=== PATIENT | male | born 1970 | race Two or more races ===

== ENCOUNTER 2024-08-25 20:12 | Emergency (ER) | payer MEDICAID, OTHER ==
[~2024-08-25] VITALS: Ht 180.3 cm; Wt 120.5 kg
[2024-08-25] MEDS: FLUORESCEIN SOD OPTH TEST STRIP LEFTEYE ONE (20:41)
[2024-08-25] MEDS ORDERED: AZIT4SOL LEFTEYE (20:42)
[2024-08-25] MEDS ORDERED: ACET500T58 PO (20:42)
[2024-08-25] MEDS ORDERED: IBUP-1455 PO (20:42)
--- NOTE | 2024-08-25 20:43 | ED.PDOC ---
Eye-HPI HPI Comments This patient is a pleasant but morbidly obese 54-year-old male who arrives the ED today for evaluation left eye pain concerns for the past 2 hours. 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 Patient denies any vision change. Patient states he went to urgent care initially and they did a copious irrigation, but the patient states he eye continues to be painful. Vital signs were stable on arrival. Chief Complaint: Foreign Body Time Seen by MD: 20:22 Reviewed Notes: Nurses Notes Allergies: Coded Allergies: NO KNOWN ALLERGIES (Unverified , 08/25/24) Information Source: Patient Mode of Arrival: Ambulatory Timing: Hours Duration: Since onset Prehospital treatment: Other (Urgent care evaluation) Quality: Pain, Red, FB sensation Eye Location: Left Conjunctiva: Injection Cornea: Left eye, Abrasion Onset: FB Exposure Past Medical History PAST MEDICAL HISTORY: Denies Surgical History: Denies all surgeries Family History Family History: Reviewed,noncontributory to illness, No family hx of Cancer, No family hx of DM, No family hx of Heart lauryn, No family hx of HTN, No family hx ofKidney lauryn, No family hx of Liver lauryn, No family hx of Lung lauryn, No family hx of Stroke Social History Smoker: Non-Smoker Alcohol: Denies ETOH Use Drugs: Denies Drug Use Lives In: Home Constitutional: denies: chills, diaphoresis, fatigue, fever, malaise, sweats, weakness, others EENTM: reports: eye pain, eye redness; denies: blurred vision, double vision, ear bleeding, ear discharge, ear drainage, ear pain, ear ringing, hearing loss, mouth pain, mouth swelling, nasal discharge, nose bleeding, nose congestion, n ose pain, photophobia, tearing, throat pain, throat swelling, voice changes, others Respiratory: denies: cough, hemoptysis, orthopnea, SOB at rest, shortness of breath, SOB with excertion, stridor, wheezing, others Cardiovascular: denies: chest pain, dizzy spells, diaphoresis, Dyspnea on exertion, edema, irregular heart beat, left arm pain, lightheadedness, palpitations, PND, syncope, others Gastrointestinal: denies: abdomen distended, abdominal pain, blood streaked bowels, constipated, diarrhea, dysphagia, difficulty swallowing, hematemesis, melena, nausea, poor appetite, poor fluid intake, rectal bleeding, rectal pain, vomiting, others Genitourinary: denies: burning, dysuria, flank pain, frequency, hematuria, incontinence, penile discharge, penile sore, pain, testicle pain, testicle swelling, urgency, others Neurological: denies: dizziness, fainting, headache, left sided numbness, left sided weakness, numbness, paresthesia, pre-existing deficit, right sided numbness, right sided weakness, seizure, speech problems, tingling, tremors, weakness, others Musculoskeletal: denies: back pain, gout, joint pain, joint swelling, muscle pain, muscle stiffness, neck pain, others Integumetry: denies: bruises, change in color, change in hair/nails, dryness, laceration, lesions, lumps, rash, wounds, others Allergic/Immunocompromised: denies: Difficulty Healing, Frequent Infections, Hives, Itching, others Hematologic/Lymphatic: denies: anemia, blood clots, easy bleeding, easy bruising, swollen glands, others Endocrine: denies: excessive hunger, excessive sweating, excessive thirst, excessive urination, flushing, intolerance to cold, intolerance to heat, unexplained weight gain, unexplained weight loss, others Psychiatric: denies: anxiety, bipolar disorder, depression, hopeless, panic disorder, schizophrenia, sleepless, suicidal, others Physical Exam General Appearance: Moderate Distress (Fywm-[id number] distress due to left eye pain concerns), Normal HEENT: Pharynx Normal, TMs Normal, Other (Left eye reveals diffuse scleral injection. Fluorescein stain confirmed multiple superior corneal abrasions. No hyphema noted. No vision loss.) Neck: Full Range of Motion, Non-Tender, Normal, Normal Inspection Respiratory: Chest Non-Tender, Lungs Clear, No Accessory Muscle Use, No Respiratory Distress, Normal Breath Sounds Cardiovascular: No Edema, No JVD, No Murmur, No Gallop, Normal Peripheral Pulses, Regular Rate/Rhythm Breast Exam: Deferred Gastrointestinal: No Organomegaly, Non Tender, No Pulsatile Mass, Normal Bowel Sounds, Soft Genitalia: Deferred Pelvic: Deferred Rectal: Deferred Extremities: No calf tenderness, Normal capillary refill, Normal inspection, Normal range of motion, Non-tender, No pedal edema Neurologic: Alert, splitter tender II-XII nml as Tested, No Motor Deficits, Normal Affect, Normal Mood, No Sensory Deficits Cerebellar Function: Normal Reflexes: Normal Skin: Dry, Normal Color, Warm Lymphatic: No Adenopathy Was a procedure done? Was a procedure done?: No EENT DIFF Eye: Corneal Abrasion, Foreign Body-Corneal X-Ray, Labs, Meds, VS Vital Signs Date Time Temp Pulse Resp B/P (MAP) Pulse Ox O2 Delivery O2 Flow Rate FiO2 08/25/24 20:12 98.0 78 18 156/85 (108) 97 X-Ray, Labs, Meds, VS Comment Patient had some pain relief status post tetracaine dispensing. Advised patient utilize antibiotics as directed for the next few days. Pain medication as needed. Advised patient to follow up with Ophthalmology in the next few days for definitive for re-evaluation. Time of 1ST Reevaluation: 20:40 Reevaluation 1ST: Improved Consultation: PCP Patient Education/Counseling: Diagnosis, Treatment Family Education/Counseling: Diagnosis, Treatment Departure 1 Departure Time of Disposition: 20:41 Impression: Primary Impression: Corneal abrasion, left Disposition: HOME / SELF CARE / HOMELESS Condition: Stable Additional Instructions: Advise utilizing antibiotic eyedrops for the next few days to stave off any infective development. Pain medication as needed. Patient should follow up with Ophthalmology in the next 3-4 days for definitive re-evaluation. e-Prescriptions Ibuprofen Micronized (Ibuprofen) 800 Mg Tab 800 MG PO Q8HP PRN, #20 TAB Prov: ORSALINA STEVENS PAC 08/25/24 Acetaminophen (Acetaminophen) 500 Mg Tab 500 MG PO Q4HP PRN, #20 TAB Prov: ROSALINA STEVENS PAC 08/25/24 Azithromycin (Ophth) (Azasite) 1 % Alondra 2 DROP LEFTEYE BID for 3 Days, #2.5 ML 0 Refills Prov: ROSALINA STEVENS PAC 08/25/24 Discharged With: Self, Friend Critical Care Note Critical Care Time?: No Stability Stability form required: No Heart Score Heart Score: Heart Score Response (Comments) Value History N/A 0 EKG N/A 0 Age N/A 0 Risk Factors N/A 0 Troponin N/A 0 Total 0 ROSALINA STEVENS PAC Aug 25, 2024 20:43
[2024-08-25 21:05] VITALS: BP 156/85; PULSE 78; RESP 18; O2SAT 97
== END 2024-08-25 21:07 | disposition home or self-care (01) ==
LOC: ER 20:12
DX: S05.02XA Injury of conjunctiva and corneal abrasion without foreign body, left eye, initial encounter (principal); W22.8XXA Striking against or struck by other objects, initial encounter; Y93.89 Activity, other specified; Y92.89 Other specified places as the place of occurrence of the external cause; Y99.8 Other external cause status

== ENCOUNTER → 2024-09-04 | Outpatient (CLI) | payer MEDICAID ==
[~2024-09-04] MED LIST: ACET500T58 PO; AZIT4SOL LEFTEYE; IBUP-1455 PO
[2024-09-04 09:00] LABS: Urine WBC None Seen /hpf (0 - 3)
[2024-09-04 09:05] LABS: Basophils # (auto) 0.1 10 ^3/uL (0-0.2); Basophils % (auto) 0.9 % (0.0-2.0); Eosinophils # (auto) 0.2 10 ^3/uL (0-0.8); Eosinophils % (auto) 1.8 % (0.0-7.0); Hematocrit 49.6 % (41.0-53.0); Hemoglobin 17.3 g/dL (13.5-17.5); Lymphocytes # (auto) 1.9 10 ^3/uL (0.4-5.4); Mean Corpuscular Hemoglobin 32.4 pg (28.0-32.0); Mean Corpuscular Hgb Conc. 34.8 g/dL (32.0-36.0); Mean Corpuscular Volume 93.1 fL (80.0-100.0); Monocytes # (auto) 0.6 10 ^3/uL (0-1.3); Monocytes % (auto) 7.1 % (0.0-12.0); Neutrophils # (auto) 5.5 10 ^3/uL (1.6-8.6); Neutrophils % (auto) 67.2 % (37.0-80.0); Nucleated Red Blood Cells % 0.1 %; Platelet Count (auto) 198 10^3/uL (140-450); Red Blood Cells 5.33 10^6/uL (4.5-5.90); Red Cell Distribution Width 12.4 % (11.8-14.3); White Blood Cell 8.2 10^3/uL (4.4-10.8)
[2024-09-04 09:27] LABS: Urine Bacteria FEW /hpf (None Seen); Urine Blood Negative /uL (Negative); Urine Clarity Clear (Clear); Urine Color Light-Yellow (Yellow); Urine Protein, UAD Negative (Negative); Urine Specific Gravity 1.013 (1.001-1.035); Urine Sperm PRESENT /hpf (None Seen); Urine Urobilinogen Normal (Negative)
[2024-09-04 09:43] LABS: Alanine Aminotransferase 25 U/L (7-40); Albumin 4.3 g/dL (3.2-4.8); Alkaline Phosphatase 73 U/L (46-116); Anion Gap 8 (5-15); Aspartate Aminotransferase 20 U/L (13-40); BUN/Creatinine Ratio 14.9 (10.0-20.0); Bilirubin, Total 0.7 mg/dL (0.2-1.0); Blood Urea Nitrogen 10 mg/dL (9-23); Calcium 9.9 mg/dL (8.7-10.4); Carbon Dioxide 24 mmol/L (20-31); Chloride 109 mmol/L (98-107); Cholesterol 188 mg/dL (< 200); Creatine Kinase IFCC 520 U/L (46-171); Glucose 197 mg/dL (74-106); HDL Cholesterol 39 mg/dL (40-59); LDL Cholesterol 135 mg/dL (< 100); Potassium 4.5 mmol/L (3.5-5.1); Sodium 141 mmol/L (136-145); Total Protein 7.2 g/dL (5.7-8.2); Triglycerides 106 mg/dL (< 150)
[2024-09-04 11:42] LABS: Prostate Specific Antigen 0.96 ng/mL (0.0-4.0)
[2024-09-04 11:48] LABS: Free T4 (Free Thyroxine) 1.04 ng/dL (0.89-1.76)
== END | disposition home or self-care (01) ==
LOC: LAB 08:34
PROVIDERS: ATTEND Internal Medicine
DX: I10 Essential (primary) hypertension (principal); E11.65 Type 2 diabetes mellitus with hyperglycemia; E55.9 Vitamin D deficiency, unspecified; R35.1 Nocturia; D45 Polycythemia vera
CPT/HCPCS: 36415; 80053; 80061; 81001; 82306; 82550; 83036; 84153; 84439; 84443; 85025; 86703; 86803

== ENCOUNTER → 2024-11-22 | Outpatient (CLI) | payer MEDICAID ==
[2024-11-22 08:22] LABS: Urine Bacteria None Seen /hpf (None Seen)
[2024-11-22 09:17] LABS: Urine Blood Negative /uL (Negative); Urine Clarity Clear (Clear); Urine Color Light-Yellow (Yellow); Urine Protein, UAD Negative (Negative); Urine Specific Gravity 1.014 (1.001-1.035); Urine Squamous Epithelial Cell None Seen /hpf (<5); Urine Urobilinogen Normal (Negative); Urine WBC < 1 /HPF (0-3)
[2024-11-22 10:34] LABS: Alanine Aminotransferase 27 U/L (7-40); Albumin 4.5 g/dL (3.2-4.8); Alkaline Phosphatase 67 U/L (46-116); Anion Gap 6 (5-15); Aspartate Aminotransferase 14 U/L (13-40); BUN/Creatinine Ratio 14.3 (10.0-20.0); Blood Urea Nitrogen 11 mg/dL (9-23); Calcium 10.1 mg/dL (8.7-10.4); Carbon Dioxide 28 mmol/L (20-31); Chloride 107 mmol/L (98-107); Potassium 4.9 mmol/L (3.5-5.1); Sodium 141 mmol/L (136-145); Triglycerides 118 mg/dL (< 150)
[2024-11-22 10:36] LABS: Bilirubin, Total 0.7 mg/dL (0.2-1.0); Cholesterol 175 mg/dL (< 200); Total Protein 7.2 g/dL (5.7-8.2)
[2024-11-22 10:38] LABS: Creatine Kinase IFCC 156 U/L (46-171); Glucose 131 mg/dL (74-106)
[2024-11-22 10:39] LABS: LDL Cholesterol 132 mg/dL (< 100)
[2024-11-22 10:42] LABS: HDL Cholesterol 33 mg/dL (40-59)
== END | disposition home or self-care (01) ==
LOC: LAB 08:08
PROVIDERS: ATTEND Internal Medicine
DX: I10 Essential (primary) hypertension (principal); D75.1 Secondary polycythemia; E55.9 Vitamin D deficiency, unspecified; R82.90 Unspecified abnormal findings in urine
CPT/HCPCS: 36415; 80053; 80061; 81001; 82550; 83036

== ENCOUNTER → 2024-12-13 | Outpatient (CLI) | payer MEDICAID ==
[2024-12-13 11:25] LABS: Alanine Aminotransferase 32 U/L (7-40); Albumin 4.7 g/dL (3.2-4.8); Alkaline Phosphatase 72 U/L (46-116); Anion Gap 7 (5-15); Aspartate Aminotransferase 21 U/L (13-40); BUN/Creatinine Ratio 10.1 (10.0-20.0); Bilirubin, Total 0.7 mg/dL (0.2-1.0); Calcium 9.7 mg/dL (8.7-10.4); Carbon Dioxide 28 mmol/L (20-31); Chloride 102 mmol/L (98-107); Potassium 4.5 mmol/L (3.5-5.1); Sodium 137 mmol/L (136-145); Total Protein 7.4 g/dL (5.7-8.2)
[2024-12-13 11:32] LABS: Blood Urea Nitrogen 8 mg/dL (9-23); Creatine Kinase IFCC 333 U/L (46-171); Glucose 125 mg/dL (74-106)
== END | disposition home or self-care (01) ==
LOC: LAB 10:37
PROVIDERS: ATTEND Internal Medicine
DX: E11.69 Type 2 diabetes mellitus with other specified complication (principal); R74.8 Abnormal levels of other serum enzymes
CPT/HCPCS: 36415; 80053; 82550

== ENCOUNTER → 2025-02-27 | Outpatient (CLI) | payer MEDICAID ==
[2025-02-27 11:23] LABS: Alanine Aminotransferase 32 U/L (7-40); Albumin 4.3 g/dL (3.2-4.8); Alkaline Phosphatase 67 U/L (46-116); Anion Gap 7 (5-15); Aspartate Aminotransferase 18 U/L (13-40); BUN/Creatinine Ratio 12.5 (10.0-20.0); Calcium 9.3 mg/dL (8.7-10.4); Carbon Dioxide 27 mmol/L (20-31); Glucose 101 mg/dL (74-106); Potassium 3.9 mmol/L (3.5-5.1); Sodium 143 mmol/L (136-145); Triglycerides 80 mg/dL (< 150)
[2025-02-27 11:24] LABS: Bilirubin, Total 0.8 mg/dL (0.2-1.0); Cholesterol 149 mg/dL (< 200)
[2025-02-27 11:28] LABS: Blood Urea Nitrogen 9 mg/dL (9-23); Chloride 109 mmol/L (98-107); Creatine Kinase IFCC 287 U/L (46-171); HDL Cholesterol 35 mg/dL (40-59); LDL Cholesterol 112 mg/dL (< 100)
== END | disposition home or self-care (01) ==
LOC: LAB 10:44
PROVIDERS: ATTEND Internal Medicine
DX: I10 Essential (primary) hypertension (principal); E11.69 Type 2 diabetes mellitus with other specified complication; E78.2 Mixed hyperlipidemia; R74.8 Abnormal levels of other serum enzymes
CPT/HCPCS: 36415; 80053; 80061; 82550; 83036

== ENCOUNTER 2025-06-04 19:48 | Emergency (ER) | payer MEDICAID ==
[~2025-06-04] VITALS: Ht 180.3 cm; Wt 116.0 kg
[2025-06-04 19:48] VITALS: BP 149/62; RESP 18; TEMP 98.4; O2SAT 96
--- NOTE | 2025-06-04 20:08 | ECG ---
[facility] Test Date: 2025-06-04 Test Time: 20:07:40 Pat Name: NATHAN PLUMMER Department: ED Room: Gender: M Joist Setter: CJ : 1970 Requested By: KIANA BECK Order Number: [id number] Reading MD: Amaury Mcdonough Measurements Intervals [place] Rate: 74 P: 58 AK: 149 QRS: 121 QRSD: 89 T: 30 QT: 396 QTc: 440 Interpretive Statements Sinus rhythm Right axis deviation Low voltage, precordial leads Borderline repolarization abnormality Borderline ST elevation, lateral leads Baseline wander in lead(s) I,II,III,aVR,aVL,aVF,V3 Electronically Signed On 06-04-2025 23:03:22 PDT by Amaury Mcdonough Please click the below link to view image of tracing.
[2025-06-04] MEDS ORDERED: SODIUM CHLORIDE 0.9% 1,000 ML IVB ONE (20:15)
[2025-06-04 20:24] LABS: Urine Protein, UAD Negative (Negative)
--- NOTE | 2025-06-04 21:12 | DVH ---
Exam: CT CT AB PEL WO CON-NO ORAL OR IV History: abd pain Comparison Study: None TECHNIQUE: Multidetector CT of the abdomen and pelvis was performed from lung bases to pubic symphysi s. Imaging was performed without IV contrast. Axial, coronal, and sagittal multiplanar reformats were obtained from the axial data set by the technologist. RADIATION DOSE: CTDI vol 25.65 mGy. DLP 1526.23 mGy.cm Findings: Limited evaluation of the solid organs in the absence of IV contrast. Liver: Unremarkable. Spleen: Unremarkable. Pancreas: Nonspecific calcification at the pancreatic head. Gallbladder: Unremarkable. Adrenals: Unremarkable Kidneys: Bilateral parapelvic renal cysts. Nonspecific bilateral perinephric stranding. Punctate non obstructing left renal calculus. Pelvic Viscera: Mild prostatomegaly. Vasculature: Mild atherosclerotic calcifications. Retroperitoneum: Shotty retroperitoneal nodes. Bowel: No bowel obstruction. The appendix is normal. Musculoskeletal: Unremarkable. Soft tissues: Unremarkable Lungs: Minimal basilar atelectasis. Impression: 1. Nonspecific bilateral perinephric stranding, which may be senescent in etiology, however clinical correlation is suggested to exclude infectious/inflammatory process. 2. Incidental findings as detailed.
[2025-06-04 21:21] LABS: Hematocrit 44.6 % (41.0-53.0); Hemoglobin 15.2 g/dL (13.5-17.5); Mean Corpuscular Hemoglobin 31.8 pg (28.0-32.0); Mean Corpuscular Volume 93.5 fL (80.0-100.0); Nucleated Red Blood Cells % 0.0 %
[2025-06-04 21:38] LABS: Alanine Aminotransferase 39 U/L (7-40); Albumin 4.3 g/dL (3.2-4.8); Alkaline Phosphatase 69 U/L (46-116); Anion Gap 7 (5-15); BUN/Creatinine Ratio 9.7 (10.0-20.0); Bilirubin, Total 0.3 mg/dL (0.2-1.0); Calcium 9.2 mg/dL (8.7-10.4); Carbon Dioxide 29 mmol/L (20-31); Lipase 44 U/L (12-53); Potassium 4.0 mmol/L (3.5-5.1); Sodium 143 mmol/L (136-145); Total Protein 6.8 g/dL (5.7-8.2)
[2025-06-04 21:40] VITALS: PULSE 74
--- NOTE | 2025-06-04 21:41 | ED.PDOC ---
History of Present Illness HPI Comments 54 y/o obese M, with a history of DM, presents with c/c RLQ and LUQ pain. Patient endorses on having symptoms on-and-off for several months. He endorses on most recent onset starting 2x days ago and has been increasing in frequency and severity since. No endorsed recent ailments, injuries, sick contacts, str enuous activities, spoiled food consumption, or further pertinent history. He states on consulting his PCP on the matter, already, and receiving ultrasounds and lab workups for complaints, which were benign. No endorsed chest pain, shortness of breath, nausea, vomiting, fever, chills, or further associated symptoms. Chief Complaint: Abdominal Pain Time Seen by MD: 20:20 Reviewed Notes: Nurses Notes, Medications, Allergies Allergies: Coded Allergies: NO KNOWN ALLERGIES (Unverified , 08/25/24) Home Meds Active Scripts Dicyclomine Hcl (BENTYL CAPSULE) 10 Mg Cp, 1 CAP PO TID PRN, #90 CAP 11 Refills Prov:KIANA BECK MD 06/04/25 Famotidine (PEPCID TABLET) 20 Mg Tb, 1 TAB PO BID PRN, #60 TAB 5 Refills Prov:KIANA BECK MD 06/04/25 Ibuprofen Micronized (Ibuprofen) 800 Mg Tab, 800 MG PO Q8HP PRN, #20 TAB Prov:ROSALINA STEVENS 08/25/24 Acetaminophen (Acetaminophen) 500 Mg Tab, 500 MG PO Q4HP PRN, #20 TAB Prov:ROSALINA STEVENS PAC 08/25/24 Azithromycin (Ophth) (Azasite) 1 % Alondra, 2 DROP LEFTEYE BID for 3 Days, #2.5 ML 0 Refills Prov:ROSALINA STEVENS PAC 08/25/24 Information Source: Patient Mode of Arrival: Ambulatory Severity: Moderate Timing: Months Duration: Intermittent Prehospital treatment: Other (See HPI) Past Medical History PAST MEDICAL HISTORY: DM Surgical History: Denies all surgeries Family History Family History: Reviewed,noncontributory to illness, No family hx of Cancer, No family hx of DM, No family hx of Heart lauryn, No family hx of HTN, No family hx ofKidney lauryn, No family hx of Liver lauryn, No family hx of Lung lauryn, No family hx of Stroke Social History Smoker: Non-Smoker Alcohol: Denies ETOH Use Drugs: Denies Drug Use Lives In: Home All Other Systems: Reviewed and Negative (Comprehensive systems review obtained and negative except for what is stated in the HPI.) Physical Exam General Appearance: Mild Distress, Obese HEENT: Normal ENT Inspection, Pharynx Normal, TMs Normal Neck: Full Range of Motion, Non-Tender, Normal, Normal Inspection Respiratory: Chest Non-Tender, Lungs Clear, No Accessory Muscle Use, No Respiratory Distress, Normal Breath Sounds Cardiovascular: No Edema, No JVD, No Murmur, No Gallop, Normal Peripheral Pulses, Regular Rate/Rhythm Breast Exam: Deferred Gastrointestinal: No Organomegaly, Non Tender, No Pulsatile Mass, Normal Bowel Sounds, Soft Genitalia: Deferred Pelvic: Deferred Rectal: Deferred Extremities: No calf tenderness, Normal capillary refill, Normal inspection, Normal range of motion, Non-tender, No pedal edema Musculoskeletal : Apperance: Normal Neurologic: Alert, socially responsible investment adviser II-XII nml as Tested, No Motor Deficits, Normal Affect, Normal Mood, No Sensory Deficits Cerebellar Function: Normal Reflexes: Normal Skin: Dry, Normal Color, Warm Lymphatic: No Adenopathy Was a procedure done? Was a procedure done?: No EKG EKG : Pulse Rate (adult): 74 [place]: RAD Cardiac Rhythm: NSR Block: None Hypertrophy: None ST: Normal Differential Dx Considerations may include: appendicitis, diverticulitis, nephrolithiasis, cystitis, pyelonephritis, PID, musculoskeletal pain, splenic infarction, pancreatitis, among others X-Ray, Labs, Meds, VS Vital Signs Date Time Temp Pulse Resp B/P (MAP) Pulse Ox O2 Delivery O2 Flow Rate FiO2 06/04/25 21:40 74 06/04/25 20:07 74 06/04/25 19:48 98.4 74 18 149/62 96 98.4 Lab Test 06/04/25 20:58 06/04/25 20:01 Range/Units White Blood Count 9.6 4.4-10.8 10^3/uL Red Blood Count 4.77 4.5-5.90 10^6/uL Hemoglobin 15.2 13.5-17.5 g/dL Hematocrit 44.6 41.0-53.0 % Mean Corpuscular Volume 93.5 80.0-100.0 fL Mean Corpuscular Hemoglobin 31.8 28.0-32.0 pg Mean Corpuscular Hemoglobin Concent 34.0 32.0-36.0 g/dL Red Cell Distribution Width 13.1 11.8-14.3 % Platelet Count 198 140-450 10^3/uL Mean Platelet Volume 8.6 6.9-10.8 fL Neutrophils (%) (Auto) 68.7 37.0-80.0 % Lymphocytes (%) (Auto) 22.8 10.0-50.0 % Monocytes (%) (Auto) 6.2 0.0-12.0 % Eosinophils (%) (Auto) 1.8 0.0-7.0 % Basophils (%) (Auto) 0.5 0.0-2.0 % Neutrophils # (Auto) 6.6 1.6-8.6 10 ^3/uL Lymphocytes # (Auto) 2.2 0.4-5.4 10 ^3/uL Monocytes # (Auto) 0.6 0-1.3 10 ^3/uL Eosinophils # (Auto) 0.2 0-0.8 10 ^3/uL Basophils # (Auto) 0.1 0-0.2 10 ^3/uL Nucleated Red Blood Cells 0.0 % Sodium Level 143 136-145 mmol/L Potassium Level 4.0 3.5-5.1 mmol/L Chloride Level 107 98-107 mmol/L Carbon Dioxide Level 29 20-31 mmol/L Anion Gap 7 5-15 Blood Urea Nitrogen 7 L 9-23 mg/dL Creatinine 0.72 0.700-1.30 mg/dL Glomerular Filtration Rate Calc 108 >90 mL/min BUN/Creatinine Ratio 9.7 L 10.0-20.0 Serum Glucose 179 H 74-106 mg/dL Calcium Level 9.2 8.7-10.4 mg/dL Total Bilirubin 0.3 0.2-1.0 mg/dL Aspartate Amino Transferase (AST) 24 13-40 U/L Alanine Aminotransferase (ALT) 39 7-40 U/L Alkaline Phosphatase 69 46-116 U/L Total Protein 6.8 5.7-8.2 g/dL Albumin 4.3 3.2-4.8 g/dL Lipase 44 12-53 U/L Urine Color Light-yellow Yellow Urine Clarity Clear Clear Urine pH 6.5 5.0-9.0 Urine Specific [place] 1.011 1.001-1.035 Urine Protein Negative Negative Urine Ketones Negative Negative Urine Blood Negative Negative /uL Urine Nitrite Negative Negative Urine Bilirubin Negative Negative Urine Urobilinogen Normal Negative mg/dL Urine Leukocyte Esterase Negative Negative /uL Urine RBC <1 0 - 3 /hpf Urine Microscopic WBC < 1 0-3 /HPF Urine Squamous Epithelial Cells None seen <5 /hpf Urine Bacteria None seen None Seen /hpf Urine Glucose Normal Normal mg/dL [place] [id number] Ph: [phone] DIAGNOSTIC IMAGING Diagnostic Imaging Report : [id number] Signed PATIENT: NATHAN PLUMMER ACCT: [id number] UNIT: [id number] : 1970 LOC: ER ROOM / BED: / AGE / SEX: 54 / M ADM STATUS: REG ER SERVICE 46 ORDERING PHYSICIAN: KIANA BECK MD PROCEDURE(s): ABPL - CT AB PEL WO CON-NO ORAL OR IV REASON: abd pain ORDER NUMBER(s): [id number], ACCESSION NUMBER(s): [id number] Exam: CT CT AB PEL WO CON-NO ORAL OR IV History: abd pain Comparison Study: None TECHNIQUE: Multidetector CT of the abdomen and pelvis was performed from lung bases to pubic symphysis. Imaging was performed without IV contrast. Axial, coronal, and sagittal multiplanar reformats were obtained from the axial data set by the technologist. RADIATION DOSE: CTDI vol 25.65 mGy. DLP 1526.23 mGy.cm Findings: Limited evaluation of the solid organs in the absence of IV contrast. Liver: Unremarkable. Spleen: Unremarkable. Pancreas: Nonspecific calcification at the pancreatic head. Gallbladder: Unremarkable. Adrenals: Unremarkable Kidneys: Bilateral parapelvic renal cysts. Nonspecific bilateral perinephric stranding. Punctate nonobstructing left renal calculus. Pelvic Viscera: Mild prostatomegaly. Vasculature: Mild atherosclerotic calcifications. Retroperitoneum: Shotty retroperitoneal nodes. Bowel: No bowel obstruction. The appendix is normal. Musculoskeletal: Unremarkable. Soft tissues: Unremarkable Lungs: Minimal basilar atelectasis. Impression: 1. Nonspecific bilateral perinephric stranding, which may be senescent in etiology, however clinical correlation is suggested to exclude infectious/inflammatory process. 2. Incidental findings as detailed. ATED BY: JAYY HURT MD DICTATED DATE/TIME: 06/04/252109 SIGNED BY: JAYY HURT MD SIGNED DATE/TIME: 06/04/252109 CC: Time of 1ST Reevaluation: 20:50 Reevaluation 1ST: Unchanged Patient Education/Counseling: Diagnosis, Treatment, Need For Follow Up Family Education/Counseling: No Family Present SEPSIS Sepsis Screen Date sepsis recognized/suspect: Jun 04, 2025 Time Sepsis recognized/suspect: 1947 Recent Procedure: No On Antibiotic Therapy: No Respiratory Rate >20: No Heart Rate >90: No Temp<36 C (96.8 F) or >38.3 C: No SBP <90 or MAP <65 mmHG: No New Acute Mental Status Change: No Is the patient on CPAP, BIPAP,: No Physician Orders Electrocardigram (06/04/25 20:02) Ct Ab Pel Wo Con-No Oral Or Iv (06/04/25 20:47) Vital Signs Date Time Temp Pulse Resp B/P (MAP) Pulse Ox O2 Delivery O2 Flow Rate FiO2 06/04/25 21:40 74 06/04/25 20:07 74 06/04/25 19:48 98.4 74 18 149/62 96 98.4 Laboratory Tests Test 06/04/25 20:58 White Blood Count 9.6 10^3/uL (4.4-10.8) Departure 1 Departure Time of Disposition: 22:40 Impression: Primary Impression: Abdominal pain Disposition: 01 HOME / SELF CARE / HOMELESS Condition: Stable e-Prescriptions Dicyclomine Hcl (BENTYL CAPSULE) 10 Mg Cp 1 CAP PO TID PRN, #90 CAP 11 Refills Prov: KIANA BECK MD 06/04/25 Famotidine (PEPCID TABLET) 20 Mg Tb 1 TAB PO BID PRN, #60 TAB 5 Refills Prov: KIANA BECK MD 06/04/25 Discharged With: Self Critical Care Note Critical Care Time?: No Stability Stability form required: No Heart Score Heart Score: Heart Score Response (Comments) Value History N/A 0 EKG N/A 0 Age N/A 0 Risk Factors N/A 0 Troponin N/A 0 Total 0 I personally scribed for KIANA BECK MD ([email or web address]) on 06/04/25 at 21:40. Electronically submitted by Fabrizio Ch ([email or web address]). KIANA BECK MD Jun 04, 2025 21:40
[2025-06-04 21:44] LABS: Blood Urea Nitrogen 7 mg/dL (9-23); Chloride 107 mmol/L (98-107); Glucose 179 mg/dL (74-106)
[2025-06-04] MEDS ORDERED: DICY10CA PO (21:58)
[2025-06-04] MEDS ORDERED: FAMO20TA10 PO (21:58)
== END 2025-06-04 23:43 | disposition home or self-care (01) ==
LOC: ER 19:48
DX: R10.12 Left upper quadrant pain (principal); R10.31 Right lower quadrant pain; E11.9 Type 2 diabetes mellitus without complications; E66.9 Obesity, unspecified; Z68.35 Body mass index [BMI] 35.0-35.9, adult; Z79.899 Other long term (current) drug therapy
CPT/HCPCS: 36415; 74176; 80053; 81001; 83690; 85025; 93005